=== PATIENT | male | born 1985 | race Caucasian/White ===

== ENCOUNTER 2020-03-05 19:36 | Emergency (ER) | payer OTHER ==
--- NOTE | 2020-03-05 19:51 | PDOC ---
Rapid Medical Evaluation Chief Complaint: Injury Time Seen by Provider: 03/05/20 19:48 Medical Evaluation: 03/05/20 19:49 34 year old male c/o left ankle/ foot pain reports he was jumping and twisted left foot. PE: walking with a limp, has full rom Last Vital Signs Temp Pulse Resp BP Pulse Ox 99.5 F 84 20 157/72 98 03/05/20 19:49 03/05/20 19:49 03/05/20 19:49 03/05/20 19:49 03/05/20 19:49 History of hypertension, IDDM A: left foot pain P'; xray 03/05/20 19:53 Discharge Disposition - Diagnosis Left foot pain - Referrals - Patient Instructions - Post Discharge Activity
[2020-03-05 19:53] VITALS: BP 157/72; PULSE 84; TEMP 99.5; BMI 21.2
--- NOTE | 2020-03-05 20:13 | PDOC ---
History of Present Illness - General Chief Complaint: Injury Stated Complaint: LEG PAIN Time Seen by Provider: 03/05/20 19:48 - History of Present Illness Initial Comments: 03/05/20 20:12 34-year-old male with a past medical history of diabetes presents for left ankle pain after describing an inversion injury when jumping yesterday. He points to the lateral aspect of the left ankle as the area of his discomfort. Past History - Medical History COPD: No Diabetes: Yes HTN: Yes - Psycho-Social/Smoking History Smoking History: Never smoked Review of Systems - Review of Systems Musculoskeletal: Yes: Joint Pain *Physical Exam - Vital Signs Last Vital Signs Temp Pulse Resp BP Pulse Ox 99.5 F 84 20 157/72 98 03/05/20 19:49 03/05/20 19:49 03/05/20 19:49 03/05/20 19:49 03/05/20 19:49 - Physical Exam 03/05/20 20:12 Left ankle skin color and temperature normal range of motion is slightly limited. There is no tenderness about the proximal fibula or along its distal course. No tenderness about the medial lateral malleolus base of the fifth metatarsal or navicular. Mild tenderness over the ATFL without instability no gross sensorimotor deficits neurovascular intact. Medical Decision Making - Medical Decision Making 03/05/20 20:12 No fracture trauma or destructive process on left ankle radiographs today weight-bear as tolerated with Aircast and crutches follow-up with up with orthopedics. Tylenol for pain. I have reviewed the pathophysiology with the patient. They are in agreement with the treatment plan all questions were answered to their satisfaction. Understanding for follow-up without fail was also conveyed to the patient. Again they are in agreement. Discharge - Discharge Information Problems reviewed: Yes Clinical Impression/Diagnosis: Left ankle sprain Clinical Impression/Diagnosis: (Ruled Out): Left foot pain Condition: Stable Disposition: HOME - Admission No - Follow up/Referral Referrals: Smita Blanchard [Primary Care Provider] - Nadir Ritter DO [Staff Physician] - - Patient Discharge Instructions Additional Instructions: You may weight-bear as tolerated with use of crutches in the Aircast Tylenol as directed for pain. Return to the emergency room for worsening symptoms. And without fail please follow-up with orthopedic surgery in 1 to 2 days for further evaluation and treatment options. - Post Discharge Activity
== END 2020-03-05 21:21 | disposition home or self-care (01) ==
LOC: JERFT 19:36 → JER 19:36 → JERFT 21:21
DX: S93.402A Sprain of unspecified ligament of left ankle, initial encounter (principal); X50.9XXA Other and unspecified overexertion or strenuous movements or postures, initial encounter
CPT/HCPCS: 73610-TC-LT-FY; 73630-TC-LT; 99283-25